=== PATIENT | male | born 1985 | race Caucasian/White ===

== ENCOUNTER 2025-06-27 04:06 | Emergency (ER) | payer MEDICAID ==
[~2025-06-27] VITALS: Ht 180.3 cm; Wt 70.3 kg
[2025-06-27] MEDS ORDERED: dexaMETHasone SOD PHOSPHATE 1 ML ONE (04:43)
[2025-06-27] MEDS ORDERED: PRED20TA PO (04:45)
[2025-06-27] MEDS ORDERED: DIPH59SP5 TP (04:45)
[2025-06-27] MEDS: dexaMETHasone SOD PHOSPHATE 10 MG/ML VIAL IM ONE (04:47)
[2025-06-27 04:53] VITALS: BP 123/79; TEMP 98.2; O2SAT 96
== END 2025-06-27 04:53 | disposition home or self-care (01) ==
LOC: ER 04:18
DX: S60.562A Insect bite (nonvenomous) of left hand, initial encounter (principal); S30.860A Insect bite (nonvenomous) of lower back and pelvis, initial encounter; S00.86XA Insect bite (nonvenomous) of other part of head, initial encounter; W57.XXXA Bitten or stung by nonvenomous insect and other nonvenomous arthropods, initial encounter; Y93.89 Activity, other specified; Y92.89 Other specified places as the place of occurrence of the external cause; Y99.8 Other external cause status
CPT/HCPCS: 99283; 96372; J1100